=== PATIENT | female | born 2000 | race Caucasian/White ===

== ENCOUNTER → 2021-04-05 | Outpatient (REF) | payer OTHER | LOC: M SFHCADAM 15:10 | PROVIDERS: ATTEND Physician Assistant | DX: Z30.09 Encounter for other general counseling and advice on contraception (principal); Z72.51 High risk heterosexual behavior ==

== ENCOUNTER 2021-05-22 07:57 | Emergency (ER) | payer OTHER ==
[~2021-05-22] VITALS: Ht 157.5 cm; Wt 50.0 kg
[2021-05-22] MEDS ORDERED: XULA1DIS TOP (08:13)
[2021-05-22] MEDS ORDERED: levETIRAcetam INJection 1,000 MG in D5W 100 ML IV ONE (09:00)
[2021-05-22 09:03] LABS: BASO % 0.2 % (0.0-1.0); EOS # 0.1 10^3/uL (0.0-0.5); EOS % 1.2 % (0.0-3.0); HEMATOCRIT 40.8 % (36.0-47.0); HEMOGLOBIN 13.8 g/dl (12.0-15.5); LYMPH # 1.3 10^3/uL (1.5-5.0); LYMPH % 12.7 % (24.0-44.0); MEAN CORPUSCULAR HEMOGLOBIN 30.5 pg (27.0-33.0); MEAN CORPUSCULAR HGB CONC 33.8 g/dl (32.0-36.5); MEAN CORPUSCULAR VOLUME 90.1 fl (80.0-96.0); MONO # 0.5 10^3/uL (0.0-0.8); MONO % 4.6 % (2.0-8.0); NEUTROPHILS # 8.2 10^3/uL (1.5-8.5); NEUTROPHILS % 80.8 % (36.0-66.0); PLATELET COUNT, AUTOMATED 223 10^3/uL (150-450); RED BLOOD COUNT 4.53 10^6/uL (4.00-5.40); WHITE BLOOD COUNT 10.1 10^3/uL (4.0-10.0)
[2021-05-22] MEDS ORDERED: KEPP1TAB PO (10:28)
[2021-05-22 11:39] VITALS: BP 108/73
== END 2021-05-22 11:40 | disposition home or self-care (01) ==
LOC: M ED 07:57
DX: R56.9 Unspecified convulsions (principal); Z79.899 Other long term (current) drug therapy
CPT/HCPCS: 70450; 80047; 84702; 85025; 93041; 96365; 96366; 99284; J1953

== ENCOUNTER 2021-08-03 18:43 | Emergency (ER) | payer OTHER, SELFPAY ==
[~2021-08-03] VITALS: Ht 157.5 cm; Wt 53.9 kg
[~2021-08-03 18:43] MED LIST: KEPP1TAB PO; XULA1DIS TOP
[2021-08-03] MEDS ORDERED: NS 1,000 ML IV ONE (21:10)
[2021-08-03 21:31] LABS: BASO % 0.2 % (0.0-1.0); EOS # 0.1 10^3/uL (0.0-0.5); EOS % 0.5 % (0.0-3.0); HEMATOCRIT 39.1 % (36.0-47.0); HEMOGLOBIN 13.5 g/dl (12.0-15.5); LYMPH # 1.8 10^3/uL (1.5-5.0); LYMPH % 12.2 % (24.0-44.0); MEAN CORPUSCULAR HEMOGLOBIN 31.3 pg (27.0-33.0); MEAN CORPUSCULAR HGB CONC 34.5 g/dl (32.0-36.5); MEAN CORPUSCULAR VOLUME 90.7 fl (80.0-96.0); MONO # 0.6 10^3/uL (0.0-0.8); MONO % 4.1 % (2.0-8.0); NEUTROPHILS % 82.7 % (36.0-66.0); PLATELET COUNT, AUTOMATED 241 10^3/uL (150-450); RED BLOOD COUNT 4.31 10^6/uL (4.00-5.40); WHITE BLOOD COUNT 14.6 10^3/uL (4.0-10.0)
[2021-08-03 21:59] LABS: ACETAMINOPHEN LEVEL < 2.0 UG/ML (10.0-30.0); ALBUMIN 3.9 GM/DL (3.2-5.2); ALT/SGPT 14 U/L (12-78); BILIRUBIN,DIRECT 0.1 MG/DL (0.0-0.2); BILIRUBIN,TOTAL 0.4 MG/DL (0.2-1.0); BLOOD UREA NITROGEN 8 MG/DL (7-18); CALCIUM LEVEL 9.2 MG/DL (8.5-10.1); CARBON DIOXIDE LEVEL 26 MEQ/L (21-32); CHLORIDE LEVEL 108 MEQ/L (98-107); CREATININE FOR GFR 0.58 MG/DL (0.55-1.30); ETHYL ALCOHOL (ETHANOL) < 0.003 % (0.000-0.010); GLUCOSE, FASTING 87 MG/DL (70-100); POTASSIUM SERUM 3.7 MEQ/L (3.5-5.1); SALICYLATE LEVEL 1.7 MG/DL (5.0-30.0); SODIUM LEVEL 140 MEQ/L (136-145); TOTAL PROTEIN 7.3 GM/DL (6.4-8.2)
[2021-08-03] MEDS ORDERED: levETIRAcetam INJection 500 MG in D5W MINI-BAG PLUS 100 ML IV ONE (22:10)
[2021-08-03] MEDS ORDERED: KEPP1TAB PO (22:22)
[2021-08-03 23:01] VITALS: BP 120/63
[2021-08-03 23:35] LABS: AMPHETAMINES LEVEL URINE NEGATIVE (NEGATIVE); BARBITURATES URINE NEGATIVE (NEGATIVE); BENZODIAZEPINES URINE NEGATIVE (NEGATIVE); CANNABINOIDS URINE POSITIVE (NEGATIVE); COCAINE METABOLITE URINE NEGATIVE (NEGATIVE); METHADONE URINE NEGATIVE (NEGATIVE); OPIATES URINE NEGATIVE (NEGATIVE); PHENCYCLIDINE URINE NEGATIVE (NEGATIVE)
== END 2021-08-03 23:13 | disposition home or self-care (01) ==
LOC: M ED 18:43
DX: O99.351 Diseases of the nervous system complicating pregnancy, first trimester (principal); G40.909 Epilepsy, unspecified, not intractable, without status epilepticus; O99.611 Diseases of the digestive system complicating pregnancy, first trimester; K21.9 Gastro-esophageal reflux disease without esophagitis; Z3A.01 Less than 8 weeks gestation of pregnancy; Z79.899 Other long term (current) drug therapy; O99.321 Drug use complicating pregnancy, first trimester; F12.20 Cannabis dependence, uncomplicated
CPT/HCPCS: 36415; 80048; 80076; 80143; 80307; 81001; 82077; 83605; 84443; 84702; 85025; 93005; 93041; 94760; 96361; 96365; 99285; J1953

== ENCOUNTER 2021-08-17 17:28 | Emergency (ER) | payer OTHER ==
[~2021-08-17] VITALS: Ht 157.5 cm; Wt 54.5 kg
[2021-08-17 17:40] VITALS: BP 106/71
[2021-08-17] MEDS ORDERED: KEPP1TAB2 PO (18:48)
[2021-08-17] MEDS ORDERED: levETIRAcetam 250MG TABLET (KEPPRA) PO ONE (18:50)
== END 2021-08-17 19:07 | disposition home or self-care (01) ==
LOC: EDBD 17:28 → M ED 17:28
DX: R56.9 Unspecified convulsions (principal); S00.512A Abrasion of oral cavity, initial encounter

== ENCOUNTER → 2024-04-30 | Outpatient (CLI) | payer OTHER ==
[~2024-04-30] MED LIST changes: +KEPP1TAB2 PO
[2024-04-30 15:19] LABS: BASO % 0.3 % (0.0-1.0); EOS # 0.1 10^3/uL (0.0-0.5); EOS % 1.5 % (0.0-3.0); HEMATOCRIT 40.4 % (36.0-47.0); HEMOGLOBIN 13.8 g/dl (12.0-15.5); LYMPH # 2.5 10^3/uL (1.5-5.0); LYMPH % 27.8 % (24.0-44.0); MEAN CORPUSCULAR HEMOGLOBIN 31.3 pg (27.0-33.0); MEAN CORPUSCULAR HGB CONC 34.2 g/dl (32.0-36.5); MEAN CORPUSCULAR VOLUME 91.6 fl (80.0-96.0); MONO # 0.6 10^3/uL (0.0-0.8); MONO % 6.1 % (2.0-8.0); NEUTROPHILS # 5.8 10^3/uL (1.5-8.5); PLATELET COUNT, AUTOMATED 232 10^3/uL (150-450); RED BLOOD COUNT 4.41 10^6/uL (4.00-5.40)
[2024-04-30 15:39] LABS: ALBUMIN 4.5 G/DL (3.2-5.2); ALKALINE PHOSPHATASE 46 U/L (35-104); ALT/SGPT 14 U/L (7.0-40); AST/SGOT 11 U/L (<34); BILIRUBIN,TOTAL 0.6 MG/DL (0.3-1.2); BLOOD UREA NITROGEN 12 MG/DL (9-23); CALCIUM LEVEL 9.2 MG/DL (8.5-10.1); CARBON DIOXIDE LEVEL 24 MMOL/L (20-31); CHLORIDE LEVEL 109 MMOL/L (98-107); CREATININE FOR GFR 0.73 MG/DL (0.55-1.30); GLOMERULAR FILTRATION RATE > 60.0 (>60); GLUCOSE, FASTING 87 MG/DL (60-100); POTASSIUM SERUM 3.7 MMOL/L (3.5-5.1); SODIUM LEVEL 142 MMOL/L (136-145); TOTAL PROTEIN 7.4 G/DL (5.7-8.2)
== END ==
LOC: M PLALAB 11:49
PROVIDERS: ATTEND Psychiatry & Neurology Neurology
DX: R56.9 Unspecified convulsions (principal)